=== PATIENT | female | born 1960 | race African-American/Black ===

== ENCOUNTER → 2020-02-06 | Outpatient (CLI) | payer MEDICAID ==
[~2020-02-06] MED LIST: CEFAZOLIN SODIUM 1000MG/VIAL ONE; FENTANYL CITRATE/PF 50MCG/ML 2ML VIAL ONE; GLYCOPYRROLATE 0.2 MG/ML 2ML VIAL ONE; LIDOCAINE HCL/PF 1% 10 MG/ML 5ML VIAL ONE; METOCLOPRAMIDE HCL 10MG/2ML VIAL ONE; MIDAZOLAM HCL 2 MG/2 ML VIAL ONE; NEOSTIGMINE METHYLSULFATE 1MG/ML 10 ML VIAL ONE; ONDANSETRON HCL 4MG/2ML INJ ONE; PHENYLEPHRINE HCL 10 MG/ML 1ML (IV VIAL) IV ONE; PROPOFOL 200MG/20ML VIAL IV ONE; ROCURONIUM BROMIDE 10MG/ML VIAL 5ML IV ONE; SODIUM CHLORIDE 0.9% 10ML VIAL ONE
== END | disposition home or self-care (01) ==
LOC: LAB 12:24
PROVIDERS: ATTEND Neurological Surgery
DX: Z01.818 Encounter for other preprocedural examination (principal); Z11.59 Encounter for screening for other viral diseases
CPT/HCPCS: C9803; U0003

== ENCOUNTER 2020-02-08 05:15 | Inpatient (IN) | payer MEDICAID ==
[2020-02-08] VITALS (51 sets, daily range): BP systolic 92–131; BP diastolic 42–94
[~2020-02-08] VITALS: Ht 167.6 cm; Wt 130.2 kg
[2020-02-08] MEDS ORDERED: LACTATED RINGERS 1,000 ML IV SCH (05:30)
[2020-02-08 06:07] LABS: BASOPHILS % 0.8 % (0.0-2.0); EOSINOPHILS % 1.8 % (0.0-5.0); HEMATOCRIT. 41.2 % (36.0-48.0); LYMPHOCYTES % 49.7 % (20.0-50.0); MEAN CORPUSCULAR HEMOGLOBIN 30.5 pg (28.0-32.0); MEAN CORPUSCULAR VOLUME 89.7 fL (81.0-99.0); MEAN PLATELET VOLUME 8.5 fl (7.4-10.4); MONOCYTES % 8.6 % (2.0-8.0); NEUTROPHILS % 39.1 % (40.0-76.0); PLATELET 265 x1000/uL (130-400); RED BLOOD CELL COUNT 4.59 mill/uL (4.2-5.4); RED CELL DISTRIBUTION WIDTH 13.8 % (11.6-14.6)
[2020-02-08 06:07] LABS: CLARITY URINE CLEAR (CLEAR); COLOR URINE YELLOW (YELLOW); KETONES URINE TRACE (NEGATIVE); LEUKOCYTE ESTERASE URINE NEGATIVE (NEGATIVE); NITRITE URINE NEGATIVE (NEGATIVE); OCCULT BLOOD URINE 2+ (NEGATIVE); PROTEIN URINE NEGATIVE (NEGATIVE); SPECIFIC GRAVITY URINE 1.028 (1.005-1.030)
[2020-02-08 06:11] LABS: CHLORIDE 108 mEq/L (98-107)
[2020-02-08 06:17] LABS: PARTIAL THROMBOPLASTIN TIME 29.1 sec (23.4-31.0); PROTHROMBIN TIME 10.3 sec (9.6-11.0)
[2020-02-08] MEDS ORDERED: THROMBIN (BOVINE) 5000 UNITS/VIAL TOP ONE (06:35)
[2020-02-08] MEDS ORDERED: BACITRACIN 50,000 UNITS/VIAL ONE (06:36)
[2020-02-08] MEDS ORDERED: LIDOCAINE HCL/EPINEPHRINE 1%-EPI 1:100,000 20 ML VIAL ONE (06:36)
[2020-02-08] MEDS ORDERED: PHENYLEPHRINE HCL 10 MG/ML 1ML (IV VIAL) IV ONE (07:03)
[2020-02-08] MEDS ORDERED: NICARDIPINE 100 MG in SODIUM CHLORIDE 0.9% 60 ML IV PRN (07:15)
[2020-02-08] MEDS ORDERED: OXYCODONE HCL/ACETAMINOPHEN 5/325MG TABLET PO PRN (07:15)
[2020-02-08] MEDS: DEXT 5%/LACTATED RINGERS 1,000 ML IV SCH ×2 (10:30→18:37)
[2020-02-08] MEDS: MORPHINE SULFATE 4 MG/ML CPJ (NOT FOR IM USE) IV PRN (10:30)
[2020-02-08] MEDS ORDERED: DIPHENHYDRAMINE INJ IV PRN (10:45)
[2020-02-08] MEDS ORDERED: NALOXONE INJ IV PRN (10:45)
[2020-02-08] MEDS ORDERED: ONDANSETRON INJ IV PRN (10:45)
[2020-02-08] MEDS: HYDROMORPHONE PCA 10MG/50ML IV PRN (11:09)
[2020-02-08] MEDS: CEFAZOLIN 1000MG PREMIX 50 ML IV SCH ×2 (13:42→22:51)
[2020-02-08] MEDS ORDERED: CEFAZOLIN SODIUM 1000MG/VIAL IV SCH (14:00)
[2020-02-08] MEDS ORDERED: SODIUM CHLORIDE 0.9% 500 ML IV SCH (20:00)
[2020-02-09] VITALS (62 sets, daily range): BP systolic 109–161; BP diastolic 37–108
[2020-02-09] MEDS: DEXT 5%/LACTATED RINGERS 1,000 ML IV SCH ×3 (03:13→21:23)
[2020-02-09 06:12] LABS: BASOPHILS % 0.2 % (0.0-2.0); EOSINOPHILS % 0.1 % (0.0-5.0); HEMATOCRIT. 35.2 % (36.0-48.0); HEMOGLOBIN. 11.7 g/dL (12.0-16.0); LYMPHOCYTES % 17.7 % (20.0-50.0); MEAN CORPUSCULAR HEMOGLOBIN 30.3 pg (28.0-32.0); MEAN CORPUSCULAR VOLUME 91.1 fL (81.0-99.0); MEAN PLATELET VOLUME 8.8 fl (7.4-10.4); MONOCYTES % 9.5 % (2.0-8.0); NEUTROPHILS % 72.5 % (40.0-76.0); PLATELET 205 x1000/uL (130-400); RED BLOOD CELL COUNT 3.86 mill/uL (4.2-5.4); RED CELL DISTRIBUTION WIDTH 13.9 % (11.6-14.6)
[2020-02-09 06:14] LABS: CHLORIDE 109 mEq/L (98-107)
[2020-02-09] MEDS: CEFAZOLIN 1000MG PREMIX 50 ML IV SCH ×3 (06:23→21:46)
[2020-02-09 06:24] LABS: LDL CHOLESTEROL 96 mg/dL (5-100)
[2020-02-09 06:26] LABS: HDL CHOLESTEROL 42 mg/dL (40-59)
[2020-02-09] MEDS: OMEPRAZOLE 20MG CAPSULE EXTENDED RELEASE PO SCH (10:00)
[2020-02-09] MEDS: HYDROMORPHONE PCA 10MG/50ML IV PRN (10:22)
[2020-02-09] MEDS ORDERED: AMLODIPINE 5MG TABLET PO NR (11:00)
[2020-02-09] MEDS ORDERED: OXYCODONE HCL/ACETAMINOPHEN 5/325MG TABLET PO PRN (11:15)
[2020-02-09] MEDS: ACETAMINOPHEN 325MG TABLET PO PRN (20:12)
[2020-02-10] VITALS (31 sets, daily range): BP systolic 109–144; BP diastolic 51–103
[2020-02-10 05:31] LABS: CHLORIDE 106 mEq/L (98-107)
[2020-02-10 05:34] LABS: BASOPHILS % 0.2 % (0.0-2.0); EOSINOPHILS % 0.5 % (0.0-5.0); HEMATOCRIT. 33.7 % (36.0-48.0); HEMOGLOBIN. 11.4 g/dL (12.0-16.0); MEAN CORPUSCULAR HEMOGLOBIN 30.6 pg (28.0-32.0); MEAN CORPUSCULAR VOLUME 90.5 fL (81.0-99.0); MEAN PLATELET VOLUME 8.9 fl (7.4-10.4); MONOCYTES % 10.6 % (2.0-8.0); NEUTROPHILS % 74.7 % (40.0-76.0); PLATELET 208 x1000/uL (130-400); RED BLOOD CELL COUNT 3.73 mill/uL (4.2-5.4); RED CELL DISTRIBUTION WIDTH 13.8 % (11.6-14.6)
[2020-02-10] MEDS: CEFAZOLIN 1000MG PREMIX 50 ML IV SCH (07:15)
[2020-02-10] MEDS: DEXT 5%/LACTATED RINGERS 1,000 ML IV SCH ×3 (07:15→23:37)
[2020-02-10] MEDS: OMEPRAZOLE 20MG CAPSULE EXTENDED RELEASE PO SCH (09:00)
[2020-02-10] MEDS: ACETAMINOPHEN 325MG TABLET PO PRN (16:04)
[2020-02-11] VITALS: BP 132/75
[2020-02-11 04:00] VITALS: BP 144/70
[2020-02-11] MEDS: DEXT 5%/LACTATED RINGERS 1,000 ML IV SCH ×2 (07:02→16:22)
[2020-02-11 07:21] LABS: CHLORIDE 105 mEq/L (98-107)
[2020-02-11 07:41] LABS: BASOPHILS % 0.3 % (0.0-2.0); EOSINOPHILS % 2.8 % (0.0-5.0); HEMATOCRIT. 31.3 % (36.0-48.0); HEMOGLOBIN. 10.8 g/dL (12.0-16.0); LYMPHOCYTES % 17.3 % (20.0-50.0); MEAN CORPUSCULAR VOLUME 89.4 fL (81.0-99.0); MEAN PLATELET VOLUME 9.1 fl (7.4-10.4); NEUTROPHILS % 68.6 % (40.0-76.0); PLATELET 205 x1000/uL (130-400); RED CELL DISTRIBUTION WIDTH 13.7 % (11.6-14.6)
[2020-02-11 08:00] VITALS: BP 136/74
[2020-02-11] MEDS: FAMOTIDINE 20MG TABLET PO SCH ×2 (09:00→18:06)
[2020-02-11] MEDS: MORPHINE SULFATE 4 MG/ML CPJ (NOT FOR IM USE) IV PRN (10:59)
[2020-02-11 12:00] VITALS: BP 138/85
[2020-02-11 16:00] VITALS: BP 144/79
[2020-02-11 20:00] VITALS: BP 138/74
[2020-02-12] VITALS: BP 115/67
[2020-02-12] MEDS: DEXT 5%/LACTATED RINGERS 1,000 ML IV SCH ×2 (02:08→08:33)
[2020-02-12 04:00] VITALS: BP 117/62
[2020-02-12] MEDS: ACETAMINOPHEN 325MG TABLET PO PRN (05:20)
[2020-02-12 07:22] LABS: BASOPHILS % 0.5 % (0.0-2.0); EOSINOPHILS % 3.5 % (0.0-5.0); HEMATOCRIT. 30.8 % (36.0-48.0); HEMOGLOBIN. 10.7 g/dL (12.0-16.0); LYMPHOCYTES % 22.4 % (20.0-50.0); MEAN CORPUSCULAR VOLUME 89.5 fL (81.0-99.0); MEAN PLATELET VOLUME 8.7 fl (7.4-10.4); MONOCYTES % 10.6 % (2.0-8.0); PLATELET 264 x1000/uL (130-400); RED BLOOD CELL COUNT 3.44 mill/uL (4.2-5.4); RED CELL DISTRIBUTION WIDTH 13.5 % (11.6-14.6)
[2020-02-12 07:43] LABS: CHLORIDE 106 mEq/L (98-107)
[2020-02-12 08:00] VITALS: BP 139/69
[2020-02-12] MEDS: FAMOTIDINE 20MG TABLET PO SCH ×2 (09:00→17:00)
[2020-02-12 12:00] VITALS: BP 118/70
[2020-02-12 16:00] VITALS: BP 136/75
[2020-02-12] MEDS ORDERED: CEFTRIAXONE 1 G PREMIX 50 ML IV SCH (16:00)
[2020-02-12] MEDS: DOCUSATE SODIUM 100MG CAPSULE PO SCH (17:28)
[2020-02-12 20:00] VITALS: BP 138/75
[2020-02-13] VITALS: BP 133/74
[2020-02-13 04:00] VITALS: BP 119/77
[2020-02-13 07:17] LABS: BASOPHILS % 0.6 % (0.0-2.0); EOSINOPHILS % 4.3 % (0.0-5.0); HEMATOCRIT. 30.5 % (36.0-48.0); HEMOGLOBIN. 10.6 g/dL (12.0-16.0); LYMPHOCYTES % 24.5 % (20.0-50.0); MEAN CORPUSCULAR HEMOGLOBIN 30.7 pg (28.0-32.0); MEAN PLATELET VOLUME 8.3 fl (7.4-10.4); MONOCYTES % 11.9 % (2.0-8.0); NEUTROPHILS % 58.7 % (40.0-76.0); PLATELET 269 x1000/uL (130-400); RED BLOOD CELL COUNT 3.47 mill/uL (4.2-5.4); RED CELL DISTRIBUTION WIDTH 13.2 % (11.6-14.6)
[2020-02-13 07:46] LABS: CHLORIDE 105 mEq/L (98-107)
[2020-02-13 08:00] VITALS: BP 100/73
[2020-02-13] MEDS: DOCUSATE SODIUM 100MG CAPSULE PO SCH ×2 (09:00→17:00)
[2020-02-13] MEDS: FAMOTIDINE 10MG TABLET PO SCH ×2 (10:49→21:21)
[2020-02-13 12:00] VITALS: BP 143/84
[2020-02-13] MEDS: CEFTRIAXONE 1 G PREMIX 50 ML IV SCH (14:05)
[2020-02-13 16:00] VITALS: BP 133/65
[2020-02-13 20:00] VITALS: BP 130/67
[2020-02-13] MEDS ORDERED: OXYCODONE HCL/ACETAMINOPHEN 5/325MG TABLET PO PRN (21:45)
[2020-02-14] VITALS (7 sets, daily range): BP systolic 109–140; BP diastolic 59–89
[2020-02-14] MEDS: DOCUSATE SODIUM 100MG CAPSULE PO SCH ×2 (08:32→17:00)
[2020-02-14] MEDS: FAMOTIDINE 10MG TABLET PO SCH ×2 (08:32→20:41)
[2020-02-14] MEDS: CEFTRIAXONE 1 G PREMIX 50 ML IV SCH (13:39)
[2020-02-14] MEDS ORDERED: OXYC-523 PO (15:12)
== END 2020-02-14 20:20 | disposition home health service (06) | DRG 304 ==
LOC: OR 05:15 → 5EST 05:16 → 6EST 02-10 14:07
PROVIDERS: ADMIT Internal Medicine; ATTEND Internal Medicine
PROC: 0SG3071 Fusion of Lumbosacral Joint with Autologous Tissue Substitute, Posterior Approach, Posterior Column, Open Approach (ICD-10-PCS; principal; 2020-02-08)
DX: M47.817 Spondylosis without myelopathy or radiculopathy, lumbosacral region (principal); M51.27 Other intervertebral disc displacement, lumbosacral region; G82.20 Paraplegia, unspecified; K21.9 Gastro-esophageal reflux disease without esophagitis; N18.9 Chronic kidney disease, unspecified; M19.90 Unspecified osteoarthritis, unspecified site; M47.16 Other spondylosis with myelopathy, lumbar region; M48.07 Spinal stenosis, lumbosacral region; F17.210 Nicotine dependence, cigarettes, uncomplicated; F32.9 Major depressive disorder, single episode, unspecified; R50.82 Postprocedural fever; M48.061 Spinal stenosis, lumbar region without neurogenic claudication; D64.9 Anemia, unspecified; E66.01 Morbid (severe) obesity due to excess calories; Z68.42 Body mass index [BMI] 45.0-49.9, adult; Z98.891 History of uterine scar from previous surgery; Z91.041 Radiographic dye allergy status; Z88.6 Allergy status to analgesic agent; M43.17 Spondylolisthesis, lumbosacral region
CPT/HCPCS: 36415; 72100; 76000; 80048; 80053; 80061; 81003; 83036; 85025; 86850; 86900; 95863; 95925; 95926; 95928; 95929; 95940; 97110; 97116; 97162; 97166; 97530; 97535; C1713; J0690; J0696; J1170; J1200; J2250; J2270; J2370; J2405; J2704; J2710; J2765; J3010; J3490; J7050; J7121